=== PATIENT | female | born 1990 | race Caucasian/White ===

== ENCOUNTER 2017-05-05 08:32 | Emergency (ER) | payer BC ==
[2017-05-05] MEDS ORDERED: HYDROcodone/ACETAMIN 5-325 MG* 1 TAB PO ONE (09:25)
[2017-05-05 09:48] VITALS: BP 125/91
--- NOTE | 2017-05-05 12:29 | ED ---
Throat Pain/Nasal Congestion - HPI Summary HPI Summary: Patient presents to the ED with CC of 10/10 left ear pain since awakening this morning. She is tearful on arrival. Denies CORTEZ, mastoid tenderness, eye pain, difficulty swallowing. Denies history of ear infections. Denies ear drainage. Feels as though it is clogged. Denies tinnitus, decreased hearing. Pain is 10/10, non-radiating, worst pain of life. Denies memory loss, confusion, weakness, Denies fevers, sweats or chills. Patient is otherwise healthy and takes no medications. Denies allergies. Denies sick contacts or recent illness. - History of Current Complaint Chief Complaint: EDEarPain Time Seen by Provider: 05/05/17 08:41 Hx Obtained From: Patient Onset/Duration: Sudden Onset Severity: Severe Associated Signs And Symptoms: Negative: Dysphagia, FB Sensation, Wheezing, Hoarseness, Sinus Discomfort - Epiglottits Risk Factors Epiglottis Risk Factors: Negative - Allergies/Home Medications Allergies/Adverse Reactions: Allergies Allergy/AdvReac Type Severity Reaction Status Date / Time Bee Venom Allergy Severe HIVES, Verified 05/05/17 09:16 SWELLING Carbamazepine [From Tegretol] Allergy Severe See Comment Verified 05/05/17 09:16 PMH/Surg Hx/FS Hx/Imm Hx Previously Healthy: Yes Endocrine/Hematology History: Denies: Hx Diabetes, Hx Thyroid Disease Cardiovascular History: Denies: Hx Hypertension, Hx Pacemaker/ICD Respiratory History: Reports: Hx Asthma - albuterol prn Denies: Hx Chronic Obstructive Pulmonary Disease (COPD), Hx Lung Cancer, Hx Pneumonia, Hx Pulmonary Embolism GI History: Denies: Hx Gall Bladder Disease, Hx Gastrointestinal Bleed, Hx Ulcer, Hx Urosepsis History: Reports: Other Problems/Disorders - hx of 2 vaginal deliveries Denies: Hx Kidney Stones, Hx Renal Disease Musculoskeletal History: Reports: Hx Bursitis - possible or strained ligament right side Denies: Hx Osteoporosis Sensory History: Denies: Hx Hearing Aid Neurological History: Reports: Hx Migraine, Hx Seizures - "I have a history of seizures, but I have not had one since in 4th grade." Denies: Hx Dementia, Hx Transient Ischemic Attacks (TIA) Psychiatric History: Reports: Hx Depression - Not on medications at this time. Denies: Hx Anxiety, Hx Panic Disorder, Hx Schizophrenia, Hx Bipolar Disorder - Immunization History Hx Pertussis Vaccination: No Immunizations Up to Date: Unable to Obtain/Confirm Infectious Disease History: No Infectious Disease History: Denies: Hx Hepatitis, Hx Human Immunodeficiency Virus (HIV), History Other Infectious Disease, Traveled Outside the [place] in Last 30 Days - Family History Known Family History: Positive: None, Hypertension, Diabetes, Other - Cancer - Social History Occupation: Employed Full-time Lives: With Family Alcohol Use: Weekly Alcohol Amount: One drink per week Hx Substance Use: No Substance Use Type: Reports: None Hx Tobacco Use: Yes Smoking Status (MU): Light Every Day Tobacco Smoker Type: Cigarettes Amount Used/How Often: 1/2 PPD Length of Time of Smoking/Using Tobacco: 3 YEARS Have You Smoked in the Last Year: Yes Review of Systems Constitutional: Negative Negative: Fever, Chills, Fatigue Eyes: Negative Positive: Ear Ache Cardiovascular: Negative Respiratory: Negative Positive: no symptoms reported, see HPI Skin: Negative Neurological: Negative All Other Systems Reviewed And Are Negative: Yes Physical Exam Triage Information Reviewed: Yes Vital Signs On Initial Exam: Initial Vitals Temp Pulse Resp BP Pulse Ox 98.5 F 97 18 133/93 100 05/05/17 08:37 05/05/17 08:37 05/05/17 08:37 05/05/17 08:37 05/05/17 08:37 Vital Signs Reviewed: Yes Appearance: Positive: Well-Appearing, Well-Nourished Skin: Positive: Warm, Skin Color Reflects Adequate Perfusion Head/Face: Positive: Normal Head/Face Inspection Eyes: Positive: EOMI, LEE, Conjunctiva Clear ENT: Positive: TM bulging, TM red, Uvula midline. Negative: Pharynx normal, Nasal congestion, Nasal drainage, TMs normal, TM dull, Trismus Respiratory/Lung Sounds: Positive: Clear to Auscultation, Breath Sounds Present Cardiovascular: Positive: Normal, Pulses are Symmetrical in both Upper and Lower Extremities Musculoskeletal: Positive: Strength/ROM Intact Neurological: Positive: Speech Normal Psychiatric: Positive: Normal AVPU Assessment: Alert Diagnostics - Vital Signs Vital Signs Temp Pulse Resp BP Pulse Ox 05/05/17 09:39 99.0 F 72 16 125/91 100 05/05/17 09:30 83 125/91 98 05/05/17 09:00 93 126/89 100 05/05/17 08:59 95 100 05/05/17 08:57 130/90 05/05/17 08:37 98.5 F 97 18 133/93 100 - Laboratory Lab Statement: Any lab studies that have been ordered have been reviewed, and results considered in the medical decision making process. EENT Course/Dx - Course Course Of Treatment: Patient presents with L sided 10/10 ear pain. On examination, the ear canal is well visulized with erythema and bulging. No pus pocket or drainage. Cone of light. She is given augmentin x 7 days and pain medicine. Return precuations, care instructions and medication description/ instructions given. Patient voices understanding and has no concerns at this time. Vital signs reveiwed prior to discharge and are WNL. - Differential Diagnoses Differential Diagnoses: Otitis Externa, Otitis Media, Pain of Unknown Etiology - Diagnoses Provider Diagnoses: Otitis media Discharge - Discharge Plan Condition: Stable Disposition: HOME Prescriptions: Amoxicillin/Clavulanate TAB* [Augmentin TAB 875*] 875 mg PO BID #14 tab MDD 2 Hydrocodone/Acetamin 10/325(NF [[place] 10/325 (NF)] 1 tab PO Q6H #6 tab MDD 4 Patient Education Materials: Otitis Media (ED) Referrals: Hakan Beavers MD [Primary Care Provider] - Additional Instructions: Ibuprofen 600mg three times daily For pain not well controlled with ibuprofen, take the hydrocodone as needed Augmentin twice daily for 7 days For any worsening symptoms, return to the ED immediately
== END 2017-05-05 09:39 | disposition home or self-care (01) ==
LOC: ED 08:32
DX: H66.92 Otitis media, unspecified, left ear (principal); H92.09 Otalgia, unspecified ear
CPT/HCPCS: 99282

== ENCOUNTER 2017-05-13 08:25 | Emergency (ER) | payer SELFPAY ==
[2017-05-13 08:39] VITALS: BP 124/82
[2017-05-13] MEDS ORDERED: Ibuprofen TAB* 800 MG PO ONE (09:13)
--- NOTE | 2017-05-13 09:45 | RAD ---
Indication: Left shoulder pain. 4 views of left shoulder demonstrates no fracture. No other bone or joint abnormality is identified. IMPRESSION: No fracture of the left humerus is noted.
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
== END 2017-05-13 10:09 | disposition home or self-care (01) ==
LOC: ED 08:25
DX: M25.512 Pain in left shoulder (principal); S13.9XXA Sprain of joints and ligaments of unspecified parts of neck, initial encounter; V89.2XXA Person injured in unspecified motor-vehicle accident, traffic, initial encounter; Y92.9 Unspecified place or not applicable; J45.909 Unspecified asthma, uncomplicated; F17.210 Nicotine dependence, cigarettes, uncomplicated
CPT/HCPCS: 99281; A9270-GY

== ENCOUNTER 2017-12-16 22:47 | Emergency (ER) | payer BC ==
[2017-12-16] MEDS ORDERED: NS 0.9% 1000 ML* 1,000 ML IV ONE (23:21)
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
[2017-12-16 23:57] LABS: ABS Basophils 0 10^3/ul (0-0.2); ABS Eosinophils 0.3 10^3/ul (0-0.6); ABS Lymphocytes 1.6 10^3/ul (1.0-4.8); ABS Monocytes 0.7 10^3/ul (0-0.8); ABS Neutrophils 4.9 10^3/ul (1.5-7.7); ABS Nucleated RBC 0 10^3/ul; Eosinophil % 3.9 % (0-6); Hematocrit 42 % (35-47); Hemoglobin 14.7 g/dl (12.0-16.0); Lymphocyte % 21.2 % (25-47); Mean Corpuscular HGB Conc 35 g/dl (31-36); Mean Corpuscular Hemoglobin 34 pg (27-31); Mean Corpuscular Volume 97 fL (80-97); Mean Platelet Volume 7.7 um3 (7.4-10.4); Nucleated Red Blood Cells % 0; Platelet Count 226 10^3/ul (150-450); Red Blood Count 4.28 10^6/ul (4.00-5.40); Red Cell Distribution Width 13 % (10.5-15); White Blood Count 7.6 10^3/ul (3.5-10.8)
[2017-12-17 00:17] LABS: EGFR Non-African American 78.7 (>60)
[2017-12-17] MEDS ORDERED: Ketorolac INJ* 30 MG/ML 1 ML VIAL IV ONE (01:51)
[2017-12-17 02:12] VITALS: BP 114/77
[2017-12-17 02:45] LABS: Urine Appearance Cloudy; Urine Blood Negative (Negative); Urine Color Yellow; Urine Ketones Negative (Negative); Urine Protein Negative (Negative); Urine Specific Gravity 1.015 (1.010-1.030); Urine Urobilinogen Negative (Negative)
--- NOTE | 2017-12-17 07:32 | RAD ---
INDICATION: Pelvic pain. Evaluate for torsion COMPARISON: None TECHNIQUE: Longitudinal and transverse transabdominal scans of the pelvis were obtained. FINDINGS: Uterus: The uterus is normal in size. There are no focal masses. The uterus measures 7.2 x 3.4 x 5.5 cm. Endometrial thickness: The endometrial thickness is measured at 0.3 cm. There is an IUD in expected position. Free fluid: There is no significant free fluid . Ovaries: The ovaries are normal in size. The right ovary measures 3.7 x 1.8 x 1.6 cm. The left ovary measures 2.8 x 2.3 x 2.7 cm. . Doppler interrogation demonstrates flow to each ovary. Other: None IMPRESSION: NORMAL EXAMINATION. IUD IN EXPECTED POSITION. NO FINDINGS OF TORSION.
--- NOTE | 2017-12-17 07:53 | RAD ---
Indication: Back and flank pain. CT of the abdomen and pelvis was performed without oral or IV contrast administration. Coronal and sagittal reconstructed images were obtained. Lung bases demonstrate no pleural fluid, nodules or masses. Heart is of normal size without evidence of pericardial effusion. The liver is normal in size. There are no focal lesions or intrahepatic duct dilatation noted. The gallbladder demonstrates no calcified gallstones. No pericholecystic fluid or wall thickening is identified. The spleen is normal in size. The pancreas demonstrates no mass or pancreatic duct dilatation. Common duct is not dilated. No adrenal masses are noted. The kidneys demonstrate no hydronephrosis in either kidney. 1 to 2 mm calculus is noted in the lower pole of the right kidney which is nonobstructing. No evidence of dilated ureter is noted. The urinary bladder is unremarkable. No solid or cystic lesions are noted in either kidney. The retroperitoneal structures including the aorta and inferior vena cava demonstrates small 3 to 5 mm lymph nodes likely not clinically significant. The bowel loops demonstrates no abnormal distention. CT of the pelvis demonstrates no pelvic adenopathy. The uterus is prominent in size with IUD in place. The ovaries are grossly unremarkable. The urinary bladder is unremarkable. The bony structures are grossly unremarkable. Compared to previous exam of November 07, 2015 no significant change is noted. IMPRESSION: Nonobstructing calculi in the lower pole of the right kidney. No evidence of obstructive uropathy is noted.
== END 2017-12-17 03:12 | disposition home or self-care (01) ==
LOC: ED 22:47
DX: R10.32 Left lower quadrant pain (principal); F17.210 Nicotine dependence, cigarettes, uncomplicated
CPT/HCPCS: 36415; 74176; 76856; 80053; 81003; 81015; 83605; 83690; 84702; 85025; 86140; 87086; 96361; 96374; 99283; J1885

== ENCOUNTER 2018-04-07 08:59 | Emergency (ER) | payer BC, OTHER ==
[2018-04-07 09:14] VITALS: BP 115/87
--- NOTE | 2018-04-07 09:36 | UC ---
Throat Pain/Nasal Tu HPI - HPI Summary HPI Summary: 27 year old woman comes in today with a chief complaint of upper respiratory tract infection symptoms and sinus pressure. Symptoms started 5-6 days ago. Started with some rhinorrhea, sore throat. Things have gotten worse with bad sinus pressure. It's also moving down into her chest. She is smoker. Rhinorrhea was a initially cleared out yellow. Patient reports when her illness case to this stage she progresses into a full-blown sinus infection and only antibiotics help. Hot steamy shower did help somewhat the congestion this morning. - History of Current Complaint Chief Complaint: UCRespiratory Stated Complaint: SINUS CONGESTION Time Seen by Provider: 04/07/18 09:19 Hx Last Menstrual Period: DEPO SHOTS Pain Intensity: 7 - Allergies/Home Medications Allergies/Adverse Reactions: Allergies Allergy/AdvReac Type Severity Reaction Status Date / Time bee venom protein (honey bee) Allergy Severe Hives, Verified 04/07/18 09:15 swelling carbamazepine [From Tegretol] Allergy Severe suicidal Verified 04/07/18 09:15 thoughts Home Medications: Home Medications Albuterol HFA INHALER* [Ventolin HFA Inhaler*] 1 puff INH Q4H PRN 04/07/18 [ History Confirmed 04/07/18] PMH/Surg Hx/FS Hx/Imm Hx Neurological History: Seizures Other History Of: Negative For: HIV, Hepatitis B, Hepatitis C, Anticoagulant Therapy - Surgical History Surgical History: Yes Surgery Procedure, Year, and Place: laproscopic nerve release - Family History Known Family History: Positive: None, Hypertension, Diabetes, Other - Cancer - cervical, breast Negative: Seizure Disorder - Social History Alcohol Use: Occasionally Alcohol Amount: One drink per wek Substance Use Type: None Smoking Status (MU): Light Every Day Tobacco Smoker Type: Cigarettes Amount Used/How Often: 1/2 PPD Length of Time of Smoking/Using Tobacco: 3 YEARS Have You Smoked in the Last Year: Yes Household Exposure Type: Cigarettes - Immunization History Most Recent Influenza Vaccination: 2014 Most Recent Tetanus Shot: 2013 Most Recent Pneumonia Vaccination: n/a Review of Systems Constitutional: Negative Skin: Negative Eyes: Negative ENT: Sore Throat, Nasal Discharge, Sinus Congestion, Sinus Pain/Tenderness Respiratory: Negative Cardiovascular: Negative Gastrointestinal: Negative Motor: Negative Neurovascular: Negative Musculoskeletal: Negative Neurological: Negative Psychological: Negative Is Patient Immunocompromised?: No All Other Systems Reviewed And Are Negative: Yes Physical Exam Triage Information Reviewed: Yes Appearance: No Pain Distress, Well-Nourished, Ill-Appearing - MILD Vital Signs: Initial Vital Signs Temp 97.8 F 04/07/18 09:10 Pulse 111 04/07/18 09:10 Resp 18 04/07/18 09:10 BP 115/87 04/07/18 09:10 Pulse Ox 100 04/07/18 09:10 Vital Signs Reviewed: Yes Eye Exam: Normal Eyes: Positive: Conjunctiva Clear ENT: Positive: Pharyngeal erythema, Nasal congestion, Nasal drainage, TMs normal Neck exam: Normal Neck: Positive: Supple Respiratory Exam: Normal Respiratory: Positive: Lungs clear, Normal breath sounds, No respiratory distress Cardiovascular: Positive: Tachycardia Musculoskeletal Exam: Normal Musculoskeletal: Positive: Strength Intact, ROM Intact Neurological Exam: Normal Neurological: Positive: Alert, Muscle Tone Normal Psychological Exam: Normal Psychological: Positive: Age Appropriate Behavior Skin Exam: Normal Throat Pain/Nasal Course/Dx - Course Course Of Treatment: DISCUSSED VIRAL VERSES BACTERIAL INFECTION AND THE ROLE OF ANTIBIOTICS. THE PATIENT WISHES TO BE ON ANTIBIOTICS AT THIS TIME. - Differential Dx/Diagnosis Provider Diagnoses: SINUSITIS Discharge - Sign-Out/Discharge Documenting (check all that apply): Patient Departure All imaging exams completed and their final reports reviewed: No Studies - Discharge Plan Condition: Stable Disposition: HOME Prescriptions: DOXYcycline CAP(*) [DOXYcycline 100MG CAP(*)] 100 mg PO BID #20 cap Patient Education Materials: Sinusitis (ED) Referrals: Hakan Beavers MD [Primary Care Provider] - Additional Instructions: FOLLOW UP WITH YOUR DOCTOR IF NOT COMPLETELY IMPROVED. GET RECHECKED FOR ANY WORSENING OF YOUR CONDITION OR QUESTIONS OR CONCERNS. - Billing Disposition and Condition Condition: STABLE Disposition: Home
== END 2018-04-07 09:39 | disposition home or self-care (01) ==
LOC: UCEAST 08:59
DX: J32.9 Chronic sinusitis, unspecified (principal); R56.9 Unspecified convulsions; R00.0 Tachycardia, unspecified; F17.210 Nicotine dependence, cigarettes, uncomplicated; Z91.030 Bee allergy status; Z88.8 Allergy status to other drugs, medicaments and biological substances
CPT/HCPCS: 99212; G0463